=== PATIENT | female | born 1965 | race Caucasian/White ===

== ENCOUNTER 2016-09-07 22:11 | Observation (INO) ==
[2016-09-07 23:34] LABS: MANUAL DIFF NEEDED? NO
[2016-09-07 23:36] LABS: BE -1.8 mmoll (-3.0-3.0); BLOOD TYPE ARTERIAL; DRAW SITE R RADIAL; METHB 1.4 % (0.0-1.5); O2(CT) 20.2 mL/dL (15.0-23.0); PCO2(98.6) 39 mmHg (35-45); PO2(98.6) 74 mmHg (60-100); SAMPLE BLOOD; SAO2 97.7 % (95.0-100.0); THB 16.3 g/dL (11.5-17.4); pH(98.6) 7.38 (7.35-7.45)
[2016-09-07 23:37] LABS: BASO% 0.7 % (0.0-0.8); EOS% 1.7 % (0.0-10.0); HEMATOCRIT 45.1 % (37.0-47.0); HEMOGLOBIN 15.2 g/dL (12.0-16.0); IMM GRAN# 0.02 X1000 (0.0-0.04); IMM GRAN% 0.2 % (0.0-0.5); LYMPH# 2.27 X1000 (1.2-3.4); LYMPH% 19.4 % (20.5-51.1); MCH 29.6 PG (27-31); MCHC 33.7 g/dL (33-37); MCV 87.9 FL (81-99); MONO# 1.23 X1000 (0.11-0.59); MONO% 10.5 % (1.7-9.3); NEUT% 67.5 % (42.2-75.2); PLT 213 X1000 (130-400); RBC 5.13 XMIL (4.2-5.4)
--- NOTE | 2016-09-07 23:45 | EKG Report ---
Test Performed on : 09/07/2016 11:33:32 PM Test Reason : diabetes Blood Pressure : / mmHG Vent. Rate : 089 BPM Atrial Rate : 089 BPM P-R Int : 158 ms QRS Dur : 082 ms QT Int : 364 ms P-R-T Axes : 053 013 038 degrees QTc Int : 442 ms Normal sinus rhythm. Possible Left atrial enlargement Borderline ECG No previous ECGs available Unconfirmed Result
[2016-09-07 23:47] LABS: ALLEN TEST YES; MODALITY ROOM AIR
[2016-09-07 23:48] LABS: HEMOGLOBIN A1C 10.2 % (4.8-6.0)
[2016-09-07] MEDS ORDERED: NS 1,000 ML IV ONE (23:53)
[2016-09-07] MEDS ORDERED: TYLENOL PO PRN (23:53)
[2016-09-08 00:11] LABS: AGAP 15; ALBUMIN 3.8 g/dL (3.5-5.0); ALKALINE PHOSPHATASE 116 U/L (32-104); BUN 12 mg/dL (8-22); CALCIUM 8.8 mg/dL (8.8-10.2); CHLORIDE 99 mmol/L (98-107); COSMO 289; GOT 41 U/L (10-30); GPT 60 U/L (10-36); POTASSIUM 3.9 mmol/L (3.5-5.1); SODIUM 134 mmol/L (136-145); TCO2 20 mmol/L (25-35); TOTAL PROTEIN 7.1 g/dL (6.3-8.3)
[2016-09-08 00:20] LABS: BILIRUBIN URINE NEGATIVE (NEGATIVE); BLOOD URINE NEGATIVE (NEGATIVE); CLARITY CLEAR (CLEAR); COLOR YELLOW; LEUKOCYTES URINE NEGATIVE (NEGATIVE); NITRITE URINE NEGATIVE (NEGATIVE); PH URINE 6.5; PROTEIN URINE NEGATIVE (NEGATIVE); SP GRAVITY URINE 1.015; UROBILINOGEN URINE NORMAL
[2016-09-08 00:24] LABS: URINE CULTURE PL NEEDED? YES; URINE EPITHELIAL CELLS <10 /HPF (<10); URINE WBC <10 /HPF (<10)
[2016-09-08 00:25] LABS: URINE SOURCE CLEAN CATCH
[2016-09-08] MEDS ORDERED: HUMULIN R (PARKWAY) ONE (01:06)
[2016-09-08] MEDS: DUONEB (A & A) INH SCH ×5 (03:37→15:59)
[2016-09-08] MEDS: HUMULIN R (PARKWAY) SUBQ SCH ×3 (06:26→16:14)
[2016-09-08] MEDS: GLUCOPHAGE PO SCH ×2 (08:20→16:14)
[2016-09-08] MEDS ORDERED: VENTOLIN HFA INH PRN (13:05)
[2016-09-08] MEDS ORDERED: LOTENSIN PO SCH (14:00)
[2016-09-08] MEDS ORDERED: NORVASC PO SCH (14:00)
--- NOTE | 2016-09-08 14:05 | HISTORY AND PHYSICAL ---
CHIEF COMPLAINT: "My blood sugar is over 600, my vision is blurry." HISTORY OF PRESENT ILLNESS: This is a 51-year-old female with a history of diabetes mellitus, asthma and diverticulosis. She presented to the emergency room stating her blood sugar was greater than 600, that she had increased thirst and blurry vision. She was found to have a blood sugar of 477 in the emergency room. She states she has been in her normal state of health up until the last few days when she had noted she had increased thirst, increased urination, and her vision was getting blurry. When blood sugars went over 600 she came in for further evaluation. PAST MEDICAL HISTORY: 1. Diabetes mellitus. 2. Hypertension. 3. Asthma. 4. Diverticulosis. 5. Morbid obesity. 6. Obstructive sleep apnea on BiPAP. PAST SURGICAL HISTORY: . SOCIAL HISTORY: She smokes half a pack a day. No alcohol or illicit drug use. She does live with family members. ALLERGIES: 1. Penicillin which causes shortness of breath. 2. Avelox which causes shortness of breath. 3. Aleve causes itching. 4. Sulfa causes shortness of breath. REVIEW OF SYSTEMS: A 14 point review of systems is discussed with patient with pertinent positives being stated in the HPI. She denied chest pain, palpitations, syncope, dizziness, fever, chills, productive cough, PND, orthopnea, nausea, vomiting, diarrhea, constipation, black or bloody vomitus, black or bloody stools. PHYSICAL EXAMINATION: GENERAL: This is a 51-year-old morbidly obese female who is sitting in the bed, in no distress. VITAL SIGNS: Blood pressure is 150/75 with a heart rate of 81, respirations are 18, temperature is 98.7 degrees oral with room air saturation of 96-98%. HEENT: Head is normocephalic, atraumatic. Pupils equal, round, react to light. EOMS are intact. Sclerae anicteric. Mucous membranes are moist. NECK: Supple with trachea midline. CARDIOVASCULAR: Regular rate and rhythm. S1 and S2 appreciated. PULMONARY: Breath sounds are clear with no increased work of breathing noted. GASTROINTESTINAL: Abdomen is large, soft, nondistended, nontender with bowel sounds in all 4 quadrants. BACK: No CVAT. No spine tenderness. MUSCULOSKELETAL: Good range of motion of joints. EXTREMITIES: No clubbing, cyanosis, or edema. Pulses are palpable x 4. Calves are nontender. NEUROLOGIC: She is alert and oriented x3. DIAGNOSTICS: WBC is 11.72 with hemoglobin 15.2, hematocrit 45.1, and platelets of 213,000. Sodium is 134, potassium 3.9, BUN 12, creatinine 0.7, with a glucose of 477. Hemoglobin A1c is 10.2. EKG reveals sinus rhythm at a rate of 89. ASSESSMENT AND PLAN: 1. Diabetes mellitus with hyperglycemia. 2. Hypertension. 3. Tobacco abuse. 4. Asthma with no exacerbation. PLAN: The patient will be admitted to the hospital. She will be placed on telemetry with supplemental oxygen if needed. She will be placed on a diabetic diet. We will do pattern blood glucose with sliding scale insulin. We will continue her metformin as well as her antihypertensives. I did discuss with the patient the perils of smoking and ways to stop. At this time she states that she has no desire to stop smoking. Further treatments pending hospital course. Dictated by NIKUNJ Krishnan for Golden Valerio MD cc: NIKUNJ Krishnan MD
[2016-09-08 17:23] VITALS: BP 125/80
--- NOTE | 2016-09-08 22:36 | DISCHARGE SUMMARY ---
ADMISSION DATE: 09/07/2016 DISCHARGE DATE: 09/08/2016 DIAGNOSES: 1. Diabetes mellitus with hyperglycemia. 2. Hypertension. 3. Asthma without exacerbation. 4. Tobacco abuse. 5. Morbid obesity. 6. Obstructive sleep apnea. LABS: WBC was 11.7 with hemoglobin 15.2, hematocrit 45.1, and platelets of 213,000. Sodium was 134, potassium 3.9, BUN 12, creatinine 0.7, with a glucose of 477 on arrival. Repeat 254. Hemoglobin A1c 10.2, Urine culture is pending. HOSPITAL COURSE: Ms. Dillon presented to the emergency room complaining of blurred vision stating that she checked her glucose and it was greater than 600. She had polyuria and polydipsia. She did have a blood sugar of 477. She was started on metformin. Gave pattern blood glucose with sliding scale insulin. Blood sugars have been around 250. She does have an elevated white count although she is not afebrile. She has no urinary symptoms. Culture is pending. Antibiotics were not given due to no source of infection. This is most likely reactive. She did receive IV hydration. We did continue her home medications. Within a few hours of being admitted she stated she was back to normal. She has done fine today. She has eaten 2 meals in entirety without any trouble. PHYSICAL EXAMINATION: Cardiovascular: Regular rate and rhythm. S1 and S2 appreciated. Pulmonary: Breath sounds are clear with no increased work of breathing noted. Gastrointestinal: Abdomen is soft, nontender, nondistended with bowel sounds in all 4 quadrants. Extremities: No clubbing, cyanosis, or edema. Calves are nontender. Pulses are palpable x4. DISCHARGE VITAL SIGNS: Blood pressure is 150/75, heart rate of 81, respirations are 18, temperature is 98.7 degrees with room air sats 96-98%. DISCHARGE MEDICATIONS: 1. Lexapro 10 mg p.o. daily. 2. ProAir inhaler p.r.n. 3. Lotrel 5/20 daily. 4. Puja-Colace 1 daily. 5. Metformin 500 mg p.o. b.i.d. DISCHARGED DIET: Diabetic. ACTIVITY: As tolerated. FOLLOWUP: She needs to follow up with her primary care physician in the next week or 2 to discuss further diabetic management. She is being discharged home in stable condition with family members. TIME SPENT: This is a greater than 30 minute discharge. Dictated by NIKUNJ Krishnan for Golden Valerio MD cc: NIKUNJ Krishnan MD
[2016-09-09] MEDS ORDERED: PERICOLACE PO SCH (09:00)
--- NOTE | 2016-09-15 02:35 | PROVIDER DOCUMENTATION ---
This chart was entered by Connie Marie Scribe, acting as scribe for Dhaval Sandoval MD. HPI-General Adult - General Chief Complaint: High Blood Sugar Stated Complaint: HIGH BLOOD SUGAR Time Seen by Provider: 09/07/16 22:46 Source: patient Allergies/Adverse Reactions: Patient Allergies Allergy/AdvReac Type Severity Reaction Status Date / Time Penicillins Allergy Intermediate SHORTNESS Verified 01/07/15 09:15 OF BREATH doxycycline Allergy SHORTNESS Verified 01/07/15 09:15 OF BREATH moxifloxacin HCl * Allergy SHORTNESS Verified 01/07/15 09:15 [From Avelox] OF BREATH naproxen sodium * Allergy ITCHING Verified 01/07/15 09:15 [From Aleve] Neuromuscular Blockers, Allergy Unknown Verified 01/07/15 09:15 Steroidal [Steroidal Neuromuscular Blockers] Sulfa (Sulfonamide Allergy SHORTNESS Verified 01/07/15 09:15 Antibiotics) OF BREATH Home Medications: Home Medication List Medication Instructions Recorded Confirmed Last Taken Type AMLODIPINE/BENAZEpril [Lotrel 5/20 5 mg PO DAILY 01/07/15 09/08/16 09/07/16 History mg] Albuterol Sulfate [Proair Hfa] 8.5 gm IH DAILY PRN PRN 09/08/16 09/08/16 History Benzonatate [Tessalon Perle] 100 mg PO TID PRN PRN 09/08/16 09/08/16 Unknown History Escitalopram Oxalate [Lexapro] 10 mg PO DAILY 09/08/16 09/08/16 09/07/16 History Fluticasone Propionate 1 spray NS DAILY 09/08/16 09/08/16 09/07/16 History Metformin [Glucophage] 500 mg PO BID CC #60 tablet 09/08/16 Unknown Rx Sennosides/Docusate Sodium 1 tab PO DAILY 09/08/16 09/08/16 09/07/16 History [Pericolace] - History of Present Illness -Gen Adult Nature of Presenting Problems: 51 Y/O F presents to ED with General C/o. Pt states for 2 weeks she's been having frequent urination, dizziness, blurred vision. States Dr. Lewis her PCP stated she was borderline Diabetic and never placed her on medicine. In ED pt had a measured glucose of over 600, states increased thirst. Location of Pain/Injury: reports: generalized Pain Radiation: reports: no radiation Severity: reports: severe Onset/Duration: reports: other (2 weeks) Timing: reports: still present Associated Symptoms: reports: dizziness, EENT symptoms, genitourinary problems. denies: chest pain, fever/chills, shortness of breath Similar Symptoms Previously?: No - Diabetes Related Context Context: reports: high blood sugar Review of Systems - Adult - REVIEW OF SYSTEMS - ADULT Constitutional: reports: fatique. denies: chills, fever Eyes: reports: blurred vision Ears, Nose, Mouth & Throat: reports: no symptoms reported Cardiovascular: reports: no symptoms reported Respiratory: reports: no symptoms reported Gastrointestinal: denies: nausea Genitourinary: reports: urgency Musculoskeletal: denies: back pain Integumentary: denies: nail changes Neurological: reports: dizziness/vertigo. denies: loss of balance Psychiatric: reports: no symptoms reported Endocrine: reports: increased thirst. denies: change in skin pigment Hematologic/Lymphatic: reports: no symptoms reported Allergic/Immunologic: reports: no symptoms reported All Other Systems: Reviewed and Negative Past History - Adult - PAST MEDICAL HISTORY-ADULT Review of Records: reports: Old Records Reviewed, Nursing Assessment Review, Medications Reviewed, Social history reviewed & non-contributory. Cardiovascular: reports: HTN Respiratory: reports: asthma Gastrointestinal: reports: diverticulosis - PRIOR SURGERIES/PROCEDURES Surgical/Procedure History: reports: - IMMUNIZATION STATUS Childhood Immunizations: See Nurse Assessment Flu Vaccine: See Nurse Assessment Physical Exam-General - CONSTITUTIONAL General Appearance: alert, obese - EYES Eyes: PERRL/EOMI, pink conjunctivae - HEAD, EARS, NOSE, MOUTH & THROAT HENMT: normocephalic/atraumatic, moist mucous membranes, normal ENT inspection, TMs normal, pharynx normal - NECK Neck: non-tender, full range of motion - RESPIRATORY Respiratory: chest non-tender, lungs clear - CARDIOVASCULAR Cardiovascular: normal peripheral pulses, regular rate, rhythm - GASTROINTESTINAL (ABDOMEN) Abdominal Exam: normal bowel sounds, non tender, soft - LYMPHATIC Lymphatic: no adenopathy - MUSCULOSKELETAL Back Exam: normal inspection Extremity: normal range of motion, normal gait, tenderness (ankle bilateral) - SKIN Integumentary: normal color, normal turgor - PSYCHIATRIC Psych/Mental Status: normal mood/affect, normal thought content, normal thought process, oriented x 3 Progress - PLAN OF CARE/RESULTS Progress/Plan/Lab Results: Vital Signs - 8 hr 09/07/16 22:15 Temperature 97 F L Pulse Rate 107 H Respiratory Rate 20 Blood Pressure 160/114 O2 Sat by Pulse Oximetry 95 Result Diagrams: 09/07/16 23:30 09/07/16 23:30 - EKG 1 Time of EKG reading by physician:: 23:33 EKG Read and Signed by:: Dhaval Sandoval EKG Interpretation (*Must complete 3 of following elements*): Normal Rate: 89 Rhythm: NSR Comments: Borderline ECG, Possible left atrial enlargement - CONSULTS/PCP/HOSPITALIST Notification #1 *Consult/PCP/Hospitalist*: Dr. Emanuel Time Discussed: 23:07 Reason/Comments: Possible Admit based on Lab results Consult Disposition: Admit (Admit Accepted) Departure - Departure Time of Disposition Decision: 22:12 DIAGNOSIS: Hypoglycemia Hypertension Qualifiers: Hypertension type: unspecified secondary hypertension Qualified Code(s): I15.9 - Secondary hypertension, unspecified; I15 - Secondary hypertension Type 2 diabetes mellitus Qualifiers: Diabetes mellitus complication status: with unspecified complications Diabetes mellitus shelter insulin use: unspecified shelter insulin use status Qualified Code(s): E11.8 - Type 2 diabetes mellitus with unspecified complications Disposition: ADMITTED INPATIENT 09 Certified Medical Emergency: Emergent Condition: Stable - Critical Care Note This patient required my direct & personal management of CC.: No This chart was documented by the indicated scribe, (Connie Marie Scribe) and accurately reflects the services I performed and decisions made by me, Dhaval Sandoval MD, as attested by the provider's signature.
== END 2016-09-08 18:43 | disposition home or self-care (01) ==
LOC: P.ED 22:11 → P.MEDSURG 22:11 → INTOOBSV 22:12 → OBSVTOIN 09-08 00:47
PROVIDERS: ATTEND Family Medicine